=== PATIENT | male | born 1965 | race American Indian/Alaskan Native ===

== ENCOUNTER 2021-11-12 21:51 | Emergency (ER) | payer MEDICAID ==
[2021-11-12] MEDS ORDERED: IBUPROFEN 800 MG TAB PO ONE (22:17)
[2021-11-12 22:19] VITALS: BP 147/79
[2021-11-12] MEDS ORDERED: SODIUM CHLORIDE 0.9% 1000 ML 1,000 ML IV ONE (22:19)
--- NOTE | 2021-11-12 22:29 | Emergency Department Report ---
ED General Adult HPI - General Chief complaint: Pain General Stated complaint: HEAD PAIN/KNEE PAIN Time Seen by Provider: 11/12/21 22:16 Source: patient Mode of arrival: Ambulatory Limitations: No Limitations - History of Present Illness Initial comments: Patient 55-year-old obese male with history of hypertension, diabetes type 2 who presents for malaise cough productive yellow-green, for the past week. States travel from [place] with positive Covid family members. Patient denies shortness of breath at this time there is no chest pain at this time. There is no dizziness or lightheadedness. However office exacerbated by activity and environmental exposure. Is been no wheezing or stridor. Symptoms are relieved by nothing tried. Patient has secondary complaint of chronic right knee pain. There is been no new fall injury or trauma. - Related Data Previous Rx's Medication Instructions Recorded Last Taken Type levETIRAcetam [Keppra TAB] 500 mg PO BID #60 tablet 11/13/21 Unknown Rx Allergies Allergy/AdvReac Type Severity Reaction Status Date / Time don AdvReac Hives Verified 11/12/21 21:58 ED Review of Systems ROS: Stated complaint: HEAD PAIN/KNEE PAIN Other details as noted in HPI Constitutional: chills, malaise. denies: fever Eyes: denies: eye pain, eye discharge, vision change ENT: congestion. denies: ear pain, throat pain Respiratory: cough. denies: orthopnea, shortness of breath, wheezing Cardiovascular: denies: chest pain, palpitations Endocrine: no symptoms reported Gastrointestinal: denies: abdominal pain, nausea, vomiting, diarrhea Genitourinary: denies: urgency, dysuria, frequency Musculoskeletal: back pain, other (bodyache ). denies: joint swelling, a rthralgia Skin: denies: rash, lesions Neurological: denies: headache, weakness, numbness, paresthesias, confusion, vertigo Psychiatric: denies: anxiety, depression Hematological/Lymphatic: denies: easy bleeding, easy bruising ED Past Medical Hx - Medications Home Medications: Home Medications Medication Instructions Recorded Confirmed Last Taken Type levETIRAcetam [Keppra TAB] 500 mg PO BID #60 tablet 11/13/21 Unknown Rx ED Physical Exam - General Limitations: No Limitations General appearance: alert, in no apparent distress - Head Head exam: Present: normocephalic, normal inspection - Eye Eye exam: Present: normal appearance, PERRL, EOMI Pupils: Present: normal accommodation - ENT ENT exam: Present: mucous membranes moist - Neck Neck exam: Present: normal inspection, full ROM. Absent: tenderness, lymphadenopathy - Respiratory Respiratory exam: Present: normal lung sounds bilaterally. Absent: respiratory distress, wheezes, stridor, chest wall tenderness - Cardiovascular Cardiovascular Exam: Present: regular rate, normal rhythm, normal heart sounds. Absent: systolic murmur, diastolic murmur, rubs, gallop - GI/Abdominal GI/Abdominal exam: Present: soft, normal bowel sounds. Absent: distended, tenderness, bruit, hernia - Rectal Rectal exam: Present: deferred - Extremities Exam Extremities exam: Present: normal inspection, full ROM, normal capillary refill. Absent: tenderness - Back Exam Back exam: Present: normal inspection, full ROM. Absent: CVA tenderness (R), CVA tenderness (L) - Neurological Exam Neurological exam: Present: alert, oriented X3, CN II-XII intact, normal gait - Expanded Neurological Exam Expanded Patient oriented to: Present: person, place, time Speech: Present: fluid speech Motor strength exam: RUE: 5, LUE: 5, RLE: 5, LLE: 5 Best Eye Response (Елена): (4) open spontaneously Best Motor Response (Елена): (6) obeys commands Best Verbal Response (Елена): (5) oriented Елена Total: 15 - Psychiatric Psychiatric exam: Present: normal affect, normal mood - Skin Skin exam: Present: warm, dry, intact, normal color. Absent: rash ED Course Vital Signs 11/12/21 11/12/21 21:58 22:48 Temperature 98.8 F Pulse Rate 50 L Respiratory 18 16 Rate Blood Pressure 147/79 O2 Sat by Pulse 94 Oximetry ED Medical Decision Making - Lab Data Result diagrams: 11/12/21 23:21 11/13/21 02:25 Labs 11/12/21 11/12/21 11/12/21 22:00 22:55 23:21 WBC 9.1 RBC 6.31 H Hgb 13.4 Hct 45.6 MCV 72 L MCH 21 L MCHC 29 L RDW 15.7 H Plt Count 287 Lymph % (Auto) 25.6 [place] % (Auto) 8.4 H Eos % (Auto) 3.8 Baso % (Auto) 0.6 Lymph # (Auto) 2.3 [place] # (Auto) 0.8 Eos # (Auto) 0.3 Baso # (Auto) 0.1 Seg Neutrophils % 61.6 Seg Neutrophils # 5.6 VBG pH Sodium Potassium Chloride Carbon Dioxide Anion Gap BUN Creatinine Estimated GFR BUN/Creatinine Ratio Glucose POC Glucose 308 H Calcium Total Bilirubin AST ALT Alkaline Phosphatase Troponin T Total Protein Albumin Albumin/Globulin Ratio Urine Color Yellow Urine Turbidity Clear Urine pH 5.0 Ur Specific [place] 1.014 Urine Protein <15 mg/dl Urine Glucose (UA) 50 Urine Ketones Neg Urine Blood Neg Urine Nitrite Neg Urine Bilirubin Neg Urine Urobilinogen < 2.0 Ur Leukocyte Esterase Neg Urine WBC (Auto) < 1.0 Urine RBC (Auto) < 1.0 Urine Mucus Few 11/12/21 11/12/21 11/13/21 23:21 23:21 02:25 WBC RBC Hgb Hct MCV MCH MCHC RDW Plt Count Lymph % (Auto) [place] % (Auto) Eos % (Auto) Baso % (Auto) Lymph # (Auto) [place] # (Auto) Eos # (Auto) Baso # (Auto) Seg Neutrophils % Seg Neutrophils # VBG pH 7.383 Sodium 140 139 Potassium 3.9 3.3 L Chloride 97.9 L 99.7 Carbon Dioxide 27 27 Anion Gap 19 16 BUN 22 H 21 H Creatinine 1.7 H 1.5 H Estimated GFR 42 49 BUN/Creatinine Ratio 13 14 Glucose 319 H 276 H POC Glucose Calcium 10.0 9.7 Total Bilirubin 0.30 AST 15 ALT 13 Alkaline Phosphatase 89 Troponin T < 0.010 Total Protein 7.0 Albumin 4.1 Albumin/Globulin Ratio 1.4 Urine Color Urine Turbidity Urine pH Ur Specific [place] Urine Protein Urine Glucose (UA) Urine Ketones Urine Blood Urine Nitrite Urine Bilirubin Urine Urobilinogen Ur Leukocyte Esterase Urine WBC (Auto) Urine RBC (Auto) Urine Mucus - EKG Data EKG shows normal: sinus rhythm Rate: normal - EKG Data When compared to previous EKG there are: previous EKG unavailable Interpretation: normal EKG, other (SR wtih Ventricular Bigeminy, prolong Qt Interval, No STEMI, interp by ED attending. ) - Radiology Data Radiology results: report reviewed, image reviewed CHEST 2 VIEWS FINDINGS: SUPPORT DEVICES: None. HEART / MEDIASTINUM: No significant abnormality. LUNGS / PLEURA: Mild interstitial prominence without focal consolidation No pneumothorax. ADDITIONAL FINDINGS: No significant additional findings. IMPRESSION: 1. No acute findings. Signer Name: Norris Dean MD Signed: 11/12/2021 10:58 PM Workstation Name: [id number] Transcribed By: ROMELIA Dictated By: ILDA DEAN MD Electronically Authenticated By: ILDA DEAN MD Signed Date/Time: 11/12/212257 DD/ 56 TD/TT: - Medical Decision Making Chest x-ray no opacities no infiltrate, labs noted repeat labs improved. Patient advises he feels much better. There is no fevers no chills no body aches no nausea no vomiting. Patient advised to take all medications as prescribed by primary care doctor. Follow-up primary care doctor in 2 to 3 days. Return to this emergency department if needed. Patient DC'd home in stable condition at this time Critical care attestation.: If time is entered above; I have spent that time in minutes in the direct care of this critically ill patient, excluding procedure time. ED Disposition Clinical Impression: Hyperglycemia Disposition: 01 HOME / SELF CARE / HOMELESS Is pt being admited?: No Does the pt Need Aspirin: No Condition: Stable Instructions: Blood Glucose Monitoring, Adult Additional Instructions: Take all medicines as prescribed. Follow-up with your primary care doctor in 2 to 3 days should symptoms worsen. Prescriptions: levETIRAcetam [Keppra TAB] 500 mg PO BID #60 tablet Referrals: BROOK EASTON MD [Staff Physician] - 3-5 Days Forms: Work/School Release Form(ED) Time of Disposition: 03:55
--- NOTE | 2021-11-12 23:02 | XRay Report ---
CHEST 2 VIEWS FINDINGS: SUPPORT DEVICES: None. HEART / MEDIASTINUM: No significant abnormality. LUNGS / PLEURA: Mild interstitial prominence without focal consolidation No pneumothorax. ADDITIONAL FINDINGS: No significant additional findings. IMPRESSION: 1. No acute findings. Signer Name: Norris Darby MD Signed: 11/12/2021 10:58 PM Workstation Name: [id number]
[2021-11-12 23:15] LABS: Bilirubin,Urine NEG (Negative); Blood,Urine NEG (Negative); Color,Urine Yellow (Yellow); Mucus,Urine FEW /HPF; Protein,Urine <15 mg/dL mg/dL (Negative); Urobilinogen,Urine < 2.0 mg/dL (<2.0); WBC,Urine < 1.0 /HPF (0.0-6.0)
[2021-11-12 23:16] LABS: RBC,Urine < 1.0 /HPF (0.0-6.0)
[2021-11-12 23:52] LABS: Basophils # (Auto) 0.1 K/mm3 (0.0-0.1); Basophils % (Auto) 0.6 % (0.0-1.8); Eosinophils # (Auto) 0.3 K/mm3 (0.0-0.4); Eosinophils % (Auto) 3.8 % (0.0-4.3); Lymphocytes # (Auto) 2.3 K/mm3 (1.2-5.4); Lymphocytes % (Auto) 25.6 % (13.4-35.0); Mean Corpuscular HGB Conc 29 % (32-34); Mean Corpuscular Volume 72 fl (84-94); Monocytes # (Auto) 0.8 K/mm3 (0.0-0.8); Monocytes % (Auto) 8.4 % (0.0-7.3); Platelet Count 287 K/mm3 (140-440); Red Blood Count 6.31 M/mm3 (3.65-5.03); Red Cell Distribution Width 15.7 % (13.2-15.2)
[2021-11-12 23:53] LABS: Hematocrit 45.6 % (35.5-45.6); Hemoglobin 13.4 gm/dl (11.8-15.2)
[2021-11-13 00:17] LABS: Alanine Aminotransferase 13 units/L (7-56); Albumin 4.1 g/dL (3.9-5); BUN/Creatinine Ratio 13; Blood Urea Nitrogen 22 mg/dL (9-20); Hemolysis Index 4
[2021-11-13 03:00] LABS: Calcium 9.7 mg/dL (8.4-10.2)
--- NOTE | 2021-11-13 08:51 | Electrocardiograph Report ---
[facility] Test Date: 2021-11-12 Test Time: 22:34:20 Pat Name: TABATHA NEWMAN Department: Room: Gender: M Sample Display Preparer: SHARRON : 1965 Requested By: SILVIO WHITE Order Number: [id number] Reading MD: Sid Damico Measurements Intervals [place] Rate: 82 P: 54 MN: 172 QRS: 33 QRSD: 95 T: 60 QT: 432 QTc: 505 Interpretive Statements Sinus rhythm Ventricular bigeminy Prolonged QT interval No previous ECG available for comparison Electronically Signed On 11-13-2021 8:51:07 EST by Sid Damico
== END 2021-11-13 04:59 | disposition home or self-care (01) ==
LOC: ED 21:51
DX: R73.9 Hyperglycemia, unspecified (principal); Z79.899 Other long term (current) drug therapy
CPT/HCPCS: 36415; 71046; 80048; 80053; 81001; 82805; 82962; 84484; 85025; 93005; 93010; 96360; 99284; J7030; Q0162